=== PATIENT | male | born 1965 | race Caucasian/White ===

== ENCOUNTER → 2022-12-12 | Outpatient (CLI) | payer OTHER ==
--- NOTE | 2022-12-12 18:07 | Diagnostic Imaging Report ---
CT Lung Screening INDICATION:Screening for lung cancer, [id number] history of smoking, current smoker. TECHNIQUE: Noncontrast, low-dose CT imaging performed according to the lung cancer screening protocol. Auto Exposure Controls were utilize during the CT exam to meet ALARA standards for radiation dose reduction. COMPARISON:None available FINDINGS: No significant adenopathy within the chest. No aneurysmal dilatation of the thoracic aorta. The heart is within normal limits in size. No significant pericardial effusion. No significant pleural effusion. No significant hiatal hernia. No pneumothorax. The lungs are clear of suspicious pulmonary nodule or consolidation. The minimally visualized upper abdomen is unremarkable. No acute osseous abnormality. IMPRESSION:No suspicious or actionable pulmonary nodule. No acute abnormality within the chest. LUNG-RADS CATEGORY:1: Negative MODIFIER:None Follow-up: Continued annual low-dose CT of the chest in 12 months. Dictated by: Dictated on workstation # [id number]
== END ==
LOC: RAD 13:21
PROVIDERS: ATTEND Nurse Practitioner Family
DX: Z12.2 Encounter for screening for malignant neoplasm of respiratory organs (principal); Z72.0 Tobacco use
CPT/HCPCS: 71271